=== PATIENT | male | born 1965 | race American Indian/Alaskan Native ===

== ENCOUNTER 2017-09-19 18:02 | Emergency (ER) | payer MEDICAID ==
[2017-09-19 18:18] VITALS: BMI 35.1
[2017-09-19 18:21] VITALS: RESP 18
[2017-09-19] MEDS ORDERED: Sodium Chloride 0.9% 1,000 ML IV STA (18:56)
--- NOTE | 2017-09-19 18:56 | ED PDOC ---
Arrival/HPI - General Chief Complaint: GI Problem Time Seen by Provider: 09/19/17 18:56 Historian: Patient - History of Present Illness Narrative History of Present Illness (Text): 09/19/17 18:56 This 52 yo male with pmh GERD, gastric ulcer, presents to this ED c/o epigastric pain, nausea, and vomiting x 2 days. Patient stated pain is non- radiating. Pain is described as burning. Patient has vomited at least 8 times since onset of symptoms. Last BM was this morning, and described as normal. Time/Duration: Other (2 days) Context: Home Past Medical History - Provider Review Nursing Documentation Reviewed: Yes - Infectious Disease Hx of Infectious Diseases: None - Gastrointestinal Hx Gastrointestinal Ulcer: Yes - Psychiatric Hx Depression: No Hx Substance Use: No - Surgical History Hx Orthopedic Surgery: Yes (left leg surgery) - Anesthesia Hx Anesthesia: Yes Hx Anesthesia Reactions: No Hx Malignant Hyperthermia: No - Suicidal Assessment Feels Threatened In Home Enviroment: No Family/Social History - Physician Review Nursing Documentation Reviewed: Yes Family/Social History: Other (noncontributory) Smoking Status: Current Some Days Smoker Hx Alcohol Use: Yes Frequency of alcohol use: Socially Hx Substance Use: No Allergies/Home Meds Allergies/Adverse Reactions: Allergies No Known Allergies Allergy (Verified 07/07/15 13:17) Review of Systems - Review of Systems Constitutional: Normal. absent: Fatigue, Weight Change, Fevers Eyes: Normal ENT: Normal Respiratory: Normal. absent: SOB, Cough Cardiovascular: Normal. absent: Chest Pain, Palpitations Gastrointestinal: Abdominal Pain, Nausea, Vomiting. absent: Constipation, Diarrhea Genitourinary Male: Normal. absent: Dysuria, Frequency, Hematuria Musculoskeletal: Normal Skin: Normal. absent: Rash Neurological: Normal. absent: Headache, Dizziness, Focal Weakness, Gait Changes , Speech Changes, Facial Droop Endocrine: Normal Hemo/Lymphatic: Normal Psychiatric: Normal Physical Exam Vital Signs Temp Pulse Resp BP Pulse Ox 09/19/17 18:19 98.2 F 85 18 153/94 H 95 Temperature: Afebrile Blood Pressure: Normal Pulse: Regular Respiratory Rate: Normal Appearance: Positive for: Well-Appearing, Non-Toxic, Comfortable Pain Distress: None Mental Status: Positive for: Alert and Oriented X 3 - Systems Exam Head: Present: Atraumatic, Normocephalic Pupils: Present: PERRL Extroacular Muscles: Present: EOMI Conjunctiva: Present: Normal Mouth: Present: Moist Mucous Membranes Neck: Present: Normal Range of Motion Respiratory/Chest: Present: Clear to Auscultation, Good Air Exchange. No: Respiratory Distress, Accessory Muscle Use Cardiovascular: Present: Regular Rate and Rhythm, Normal S1, S2. No: Murmurs Abdomen: Present: Normal Bowel Sounds. No: Tenderness, Distention, Peritoneal Signs, Rebound, Guarding Back: Present: Normal Inspection Upper Extremity: Present: Normal Inspection. No: Cyanosis, Edema Lower Extremity: Present: Normal Inspection. No: Edema Neurological: Present: GCS=15, CN II-XII Intact, Speech Normal Skin: Present: Warm, Dry, Normal Color. No: Rashes Psychiatric: Present: Alert, Oriented x 3, Normal Insight, Normal Concentration Medical Decision Making ED Course and Treatment: 09/19/17 21:14 Re-evaluation. Patient feels better. Discussed results and plan with patient who expresses understanding. All questions answered and there is agreement with the plan to discharge home with instructions. Patient stable for discharge. Return if symptoms persist or worsen. Re-evaluation Time: 21:14 Reassessment Condition: Re-examined, Improved - Lab Interpretations Lab Results: 09/19/17 19:15 09/19/17 19:15 Lab Results 09/19/17 19:15: Sodium 140, Potassium 4.3, Chloride 102, Carbon Dioxide 25, Anion Gap 17, BUN 11, Creatinine 1.0, Est GFR ( Amer) > 60, Est GFR (Non- Af Amer) > 60, Random Glucose 108, Calcium 10.0, Total Bilirubin 1.5 H, AST 36, ALT 68 H, Alkaline Phosphatase 57, Total Protein 7.9, Albumin 4.4, Globulin 3.5 , Albumin/Globulin Ratio 1.3, Lipase 48 09/19/17 19:15: WBC 7.3, RBC 4.81, Hgb 15.3, Hct 44.6, MCV 92.7, MCH 31.8, MCHC 34.3, RDW 13.6, Plt Count 255, MPV 9.1, Gran % 62.9, Lymph % (Auto) 29.0, [place] % (Auto) 7.6 H, Eos % (Auto) 0.4 L, Baso % (Auto) 0.1, Gran # 4.61, Lymph # ( Auto) 2.1, [place] # (Auto) 0.6, Eos # (Auto) 0.0, Baso # (Auto) 0.01 I have reviewed the lab results: Yes Interpretation: No clinic. lab abnormalty - RAD Interpretation Narrative RAD Interpretations (Text): 09/19/17 20:58 CT Scan ABD PELVIS IV CONTRAST ONLY Exam Date: 09/19/17 This imaging exam was performed at [facility] EXAM: CT Abdomen and Pelvis With Intravenous Contrast CLINICAL HISTORY: 52 years old, male; Pain; Abdominal pain; Epigastric; Additional info: Epigastric pain TECHNIQUE: Axial computed tomography images of the abdomen and pelvis with intravenous contrast. All CT scans at this facility use one or more dose reduction techniques, viz.: automated exposure control; ma/kV adjustment per patient size (including targeted exams where dose is matched to indication; i.e. head); or iterative reconstruction technique. Coronal and sagittal reformatted images were created and reviewed. CONTRAST: 100 mL of OMNI 350 administered intravenously. COMPARISON: No relevant prior studies available. FINDINGS: Lower thorax: No acute findings. ABDOMEN: Liver: Fatty infiltration of the liver. Gallbladder and bile ducts: No acute abnormality as visualized. Pancreas: No acute abnormality as visualized. Spleen: No splenomegaly. Adrenals: No acute abnormality as visualized. Kidneys and ureters: Bilateral hypoattenuating lesions of varying size and complexity, some containing calcifications. The largest is on the left measuring approximately 3 cm. Majority too small for complete evaluation on current study. Followup evaluation dedicated imaging can be used to assess stability. Symmetric emhancement. No hydronephrosis. Stomach and bowel: Evaluation limited without enteric contrast. Question thickening of distal esophageal wall. The stomach is collapsed, limiting its evaluation. No obstruction. Colonic diverticula. Appendix: No findings to suggest acute appendicitis. PELVIS: Bladder: Limited evaluation due to collapsed state. Reproductive: Prostatic calcifications. ABDOMEN and PELVIS: Intraperitoneal space: No free air. No significant fluid collection. Bones: Degenerative changes. Alejandro and screws stabilize left femur. Soft tissues: Fat-containing umbilical and bilateral inguinal hernias. Vasculature: No abdominal aortic aneurysm. Lymph nodes: No acute abnormality as visualized. IMPRESSION: Evaluation of bowel limited without enteric contrast. Question thickening of distal esophageal wall. Colonic diverticula. Fatty infiltration of the liver. Bilateral hypoattenuating lesions in the kidneys of varying size and complexity, some containing calcifications. The largest is on the left measuring approximately 3 cm. Majority too small for complete evaluation on current study. Followup evaluation dedicated imaging can be used to assess stability. Fat-containing umbilical and bilateral inguinal hernias. Additional details/findings as above. Correlate clinically. Followup as warranted. Radiology Orders: 09/19/17 18:56 CHEST PORTABLE [RAD] Stat 09/19/17 18:59 ABD & PELVIS IV CONTRAST ONLY [CT] Stat - Medication Orders Current Medication Orders: Discontinued Medications Al Hydrox/Mg Hydrox/Simethicone (Maalox Plus 30 Ml) 30 ml PO STAT STA Stop: 09/19/17 20:09 Last Admin: 09/19/17 20:21 Dose: 30 ml Belladonna/Phenobarbital ( Elixir) 5 ml PO STAT STA Stop: 09/19/17 20:09 Last Admin: 09/19/17 20:23 Dose: 5 ml Sodium Chloride (Sodium Chloride 0.9%) 1,000 mls @ 1,000 mls/hr IV .Q1H STA Stop: 09/19/17 19:55 Last Admin: 09/19/17 19:36 Dose: 1,000 mls/hr eMAR Start Stop Document 09/19/17 19:36 [email or web address] (Rec: 09/19/17 19:37 [email or web address] [facility] [id number]) Intravenous Solution Start Date 09/19/17 Start Time 19:37 End Date 09/19/17 Ketorolac Tromethamine (Toradol) 30 mg IVP STAT STA Stop: 09/19/17 20:08 Last Admin: 09/19/17 20:20 Dose: 30 mg MAR Pain Assessment Document 09/19/17 20:20 LA (Rec: 09/19/17 20:21 LA [facility] [id number]) Pain Reassessment Is this a pain reassessment? No Sleep Is patient sleeping during reassessment? No Presence of Pain Presence of Pain Yes Pain Scale Used Pain Scale Used Numeric Location Pain Location Body Site Abdomen IVP Administration Document 09/19/17 20:20 LA (Rec: 09/19/17 20:21 LA [facility] [id number]) Charges for Administration # of IVP Administrations 1 Lidocaine HCl (Lidocaine 2% Viscous) 5 ml PO STAT STA Stop: 09/19/17 20:09 Last Admin: 09/19/17 20:21 Dose: 5 ml Ondansetron HCl (Zofran Inj) 4 mg IVP STAT STA Stop: 09/19/17 18:57 Last Admin: 09/19/17 19:37 Dose: 4 mg IVP Administration Document 09/19/17 19:37 [email or web address] (Rec: 09/19/17 19:38 [email or web address] [id number]) Charges for Administration # of IVP Administrations 1 Pantoprazole Sodium (Protonix Inj) 40 mg IVP STAT STA Stop: 09/19/17 18:57 Last Admin: 09/19/17 19:38 Dose: 40 mg IVP Administration Document 09/19/17 19:38 [email or web address] (Rec: 09/19/17 19:38 [email or web address] [id number] [employer] [employer]) Charges for Administration # of IVP Administrations 1 Disposition/Present on Arrival - Present on Arrival Any Indicators Present on Arrival: No History of DVT/PE: No History of Uncontrolled Diabetes: No Urinary Catheter: No History of Decub. Ulcer: No History Surgical Site Infection Following: None - Disposition Have Diagnosis and Disposition been Completed?: Yes Diagnosis: Esophagitis, Nonspecific abdominal pain Disposition: HOME/ ROUTINE Disposition Time: 21:15 Patient Plan: Discharge Patient Problems: Current Active Problems Problem Status Onset Esophagitis Acute Nonspecific abdominal pain Acute Condition: IMPROVED Discharge Instructions (ExitCare): Nausea and Vomiting, Adult Additional Instructions: Call private doctor for follow up visit in 1-[address] Peñaloza Gatroenterologist for revaluation at earliest appointment. Take medication as instructed. Return to emergency if symptoms worsen. You can also ask Dr. Null to give you a referral to see a different car hiker Prescriptions: Acetaminophen [Tylenol 325mg tab] 975 mg PO Q6H PRN #30 tab PRN Reason: Pain, Moderate (4-7) Omeprazole 40 mg PO DAILY #20 capsule. Ondansetron ODT [Zofran ODT] 4 mg PO Q4H PRN #15 odt PRN Reason: Nausea/Vomiting Sucralfate [Carafate] 1 gm PO DAILY #20 tab Referrals: Remy Peñaloza MD [Medical Doctor] - Follow up with primary Kristen Null MD [Family Provider] - Follow up with primary Forms: [employer] (Somali), WORK NOTE
[2017-09-19] MEDS ORDERED: Iohexol 350 MG/100 ML VIAL ONE (19:24)
[2017-09-19 19:31] LABS: BASO # 0.01 K/mm3 (0.0-2.0); BASO % 0.1 % (0.0-3.0); EOS % 0.4 % (1.5-5.0); GRAN # 4.61 (1.4-6.5); GRAN % 62.9 % (50.0-68.0); HEMOGLOBIN 15.3 g/dL (14.0-18.0); LYMPH # 2.1 (1.2-3.4); MEAN CELL VOLUME 92.7 fl (80.0-105.0); MEAN CORPUSCULAR HEMOGLOBIN 31.8 pg (25.0-35.0); MEAN CORPUSCULAR HGB CONC 34.3 g/dl (31.0-37.0); MEAN PLATELET VOLUME 9.1 fl (7.0-11.0); MONO # 0.6 (0.1-0.6); MONO % 7.6 % (1.0-6.0); RBC 4.81 10^6/uL (3.5-6.1); RED CELL DISTRIBUTION WIDTH 13.6 % (11.5-14.5); WHITE BLOOD COUNT 7.3 10^3/ul (4.5-11.0)
[2017-09-19 19:37] LABS: ALB/GLOB RATIO 1.3 (1.1-1.8); ALBUMIN 4.4 g/dL (3.0-4.8); ALT/SGPT 68 U/L (7-56); AST/SGOT 36 U/L (17-59); BLOOD UREA NITROGEN 11 mg/dL (7-21); GFR AFRICAN-AMERICAN > 60; GFR NON-AFRICAN AMERICAN > 60; LIPASE 48 U/L (23-300)
[2017-09-19] MEDS ORDERED: Atrop/Hyosc/Scopal/PB Elixir (120 ml) PO STA (20:08)
[2017-09-19] MEDS ORDERED: Alum-Mag Hydrox-Simethicone Susp (30 mL) PO STA (20:08)
--- NOTE | 2017-09-19 20:37 | CT ---
EXAM: CT Abdomen and Pelvis With Intravenous Contrast CLINICAL HISTORY: 52 years old, male; Pain; Abdominal pain; Epigastric; Additional info: Epigastric pain TECHNIQUE: Axial computed tomography images of the abdomen and pelvis with intravenous contrast. All CT scans at this facility use one or more dose reduction techniques, viz.: automated exposure control; ma/kV adjustment per patient size (including targeted exams where dose is matched to indication; i.e. head); or iterative reconstruction technique. Coronal and sagittal reformatted images were created and reviewed. CONTRAST: 100 mL of OMNI 350 administered intravenously. COMPARISON: No relevant prior studies available. FINDINGS: Lower thorax: No acute findings. ABDOMEN: Liver: Fatty infiltration of the liver. Gallbladder and bile ducts: No acute abnormality as visualized. Pancreas: No acute abnormality as visualized. Spleen: No splenomegaly. Adrenals: No acute abnormality as visualized. Kidneys and ureters: Bilateral hypoattenuating lesions of varying size and complexity, some containing calcifications. The largest is on the left measuring approximately 3 cm. Majority too small for complete evaluation on current study. Followup evaluation dedicated imaging can be used to assess stability. Symmetric emhancement. No hydronephrosis. Stomach and bowel: Evaluation limited without enteric contrast. Question thickening of distal esophageal wall. The stomach is collapsed, limiting its evaluation. No obstruction. Colonic diverticula. Appendix: No findings to suggest acute appendicitis. PELVIS: Bladder: Limited evaluation due to collapsed state. Reproductive: Prostatic calcifications. ABDOMEN and PELVIS: Intraperitoneal space: No free air. No significant fluid collection. Bones: Degenerative changes. Alejandro and screws stabilize left femur. Soft tissues: Fat-containing umbilical and bilateral inguinal hernias. Vasculature: No abdominal aortic aneurysm. Lymph nodes: No acute abnormality as visualized. IMPRESSION: Evaluation of bowel limited without enteric contrast. Question thickening of distal esophageal wall. Colonic diverticula. Fatty infiltration of the liver. Bilateral hypoattenuating lesions in the kidneys of varying size and complexity, some containing calcifications. The largest is on the left measuring approximately 3 cm. Majority too small for complete evaluation on current study. Followup evaluation dedicated imaging can be used to assess stability. Fat-containing umbilical and bilateral inguinal hernias. Additional details/findings as above. Correlate clinically. Followup as warranted.
[2017-09-19 22:09] VITALS: BP 149/85; PULSE 80; TEMP 98; O2SAT 98
--- NOTE | 2017-09-20 09:06 | RAD ---
HISTORY: epigastric pain COMPARISON: No prior. FINDINGS: LUNGS: The lungs are well inflated and clear. PLEURA: No significant pleural effusion identified, no pneumothorax apparent. CARDIOVASCULAR: Normal. OSSEOUS STRUCTURES: No significant abnormalities. VISUALIZED UPPER ABDOMEN: Normal. OTHER FINDINGS: None. IMPRESSION: No active pulmonary disease.
--- NOTE | 2017-09-20 19:11 | CARD ---
APPROVED REPORT EKG Measurement Heart [id number] CA [id number] <Conclusion> Normal sinus rhythm Abnormal QRS-T angle, consider primary T wave abnormality Abnormal ECG
== END 2017-09-19 21:46 | disposition home or self-care (01) ==
LOC: ED 18:02
DX: K20.9 Esophagitis, unspecified (principal); R10.9 Unspecified abdominal pain
CPT/HCPCS: 71045; 74177; 80053; 83690; 85025; 93005; 96374; 96375; 99283; C9113; J1885; J2405; J7040; Q9967

== ENCOUNTER 2018-09-29 15:48 | Emergency (ER) | payer MEDICAID ==
[2018-09-29 16:14] VITALS: BMI 34.0
[2018-09-29 16:20] VITALS: RESP 18; TEMP 98.7
--- NOTE | 2018-09-29 16:53 | ED PDOC ---
Arrival/HPI - General Chief Complaint: Cough, Cold, Congestion Time Seen by Provider: 09/29/18 15:58 Historian: Patient - History of Present Illness Narrative History of Present Illness (Text): 09/29/18 16:50 53 year old male with no significant past medical history presents to the Emergency department complaining of a productive cough with yellow sputum x 3 days. Patient endorses a subjective fever and sore throat. He denies shortness of breath, nausea, vomiting, diarrhea, abdominal pain, chest pain or any other complaints. He also denies any recent travel or sick contact. Time/Duration: < week Symptom Onset: Gradual Symptom Course: Unchanged Activities at Onset: Light Context: Home Past Medical History - Provider Review Nursing Documentation Reviewed: Yes - Infectious Disease Hx of Infectious Diseases: None - Cardiac Hx Cardiac Disorders: No - Pulmonary Hx Respiratory Disorders: No - Neurological Hx Neurological Disorder: No - HEENT Hx HEENT Disorder: No - Renal Hx Renal Disorder: No - Endocrine/Metabolic Hx Endocrine Disorders: No - Hematological/Oncological Hx Blood Disorders: No - Integumentary Hx Dermatological Disorder: No - Musculoskeletal/Rheumatological Hx Falls: No - Gastrointestinal Hx Gastrointestinal Disorders: Yes Other/Comment: Ventral Hernia - Genitourinary/Gynecological Hx Genitourinary Disorders: No - Psychiatric Hx Psychophysiologic Disorder: No Hx Depression: No Hx Substance Use: No - Surgical History Hx Open Reduction Internal Fixation: Yes (left leg) - Anesthesia Hx Anesthesia: Yes Hx Anesthesia Reactions: No Hx Malignant Hyperthermia: No - Suicidal Assessment Feels Threatened In Home Enviroment: No Family/Social History - Physician Review Nursing Documentation Reviewed: Yes Family/Social History: Unknown Family HX Smoking Status: Current Some Days Smoker Hx Alcohol Use: Yes Frequency of alcohol use: Socially Hx Substance Use: No Allergies/Home Meds Allergies/Adverse Reactions: Allergies No Known Allergies Allergy (Verified 07/07/15 13:17) Home Medications: Home Meds Medication Instructions Recorded Confirmed Ibuprofen 1 tab PO PRN PRN 10/01/17 10/01/17 Review of Systems - Physician Review All systems were reviewed & negative as marked: Yes - Review of Systems Constitutional: Fevers. absent: Fatigue ENT: Sore Throat, Sinus Congestion Respiratory: Cough, Sputum (yellow). absent: SOB Cardiovascular: absent: Chest Pain, Palpitations Gastrointestinal: absent: Abdominal Pain, Diarrhea, Nausea, Vomiting Genitourinary Male: absent: Dysuria, Urinary Output Changes Musculoskeletal: absent: Arthralgias, Back Pain, Neck Pain, Joint Swelling Skin: absent: Rash, Pruritis Endocrine: absent: Diaphoresis Psychiatric: absent: Anxiety, Depression Physical Exam Vital Signs Reviewed: Yes Vital Signs Temp Pulse Resp BP Pulse Ox 09/29/18 15:48 98.7 F 99 H 18 138/67 95 Temperature: Afebrile Blood Pressure: Normal Pulse: Regular Respiratory Rate: Normal Appearance: Positive for: Well-Appearing, Non-Toxic, Comfortable Pain Distress: None Mental Status: Positive for: Alert and Oriented X 3 - Systems Exam Head: Present: Atraumatic, Normocephalic Conjunctiva: Present: Normal Ears: Present: Normal, NORMAL TM, Normal Canal. No: Erythema Mouth: Present: Moist Mucous Membranes. No: Drooling, Trismus Pharnyx: Present: Normal. No: ERYTHEMA, EXUDATE, TONSILS ENLARGED, Peritonsilar Swelling, Uvular Deviation Nose (Internal): Present: Normal Inspection. No: Septal Hematoma Neck: Present: Normal Range of Motion, Trachea Midline. No: MIDLINE TENDERNESS Respiratory/Chest: Present: Clear to Auscultation, Good Air Exchange. No: Respiratory Distress, Accessory Muscle Use Cardiovascular: Present: Regular Rate and Rhythm, Normal S1, S2. No: Murmurs Abdomen: No: Tenderness, Distention, Peritoneal Signs Neurological: Present: GCS=15, Speech Normal Skin: Present: Warm, Dry, Normal Color. No: Rashes Psychiatric: Present: Alert, Oriented x 3 Medical Decision Making ED Course and Treatment: 09/29/18 16:56 Impression: 53 year old male presents to the Emergency department complaining of a p roductive cough, sore throat and subjective fever x 3 days Plan: --CXR -- Reassess and disposition Prior Visits: Notes and results from previous visits were reviewed. Progress Notes: Patient is nontoxic well-appearing in no distress. Vital signs are stable. cxr; wnl zithromax po I advised follow up with primary care physician within the next 2 days. I advised increase fluids and return if symptoms worsen persist or if new symptoms develop. IMPRESSION; cough tylenol every 4 hours as needed for pain/fever reduction Zithromax one tablet once daily x4 days Increase fluids Followup with primary care physician the next 2 days Return if symptoms worsen persist or if new symptoms develop - RAD Interpretation Radiology Orders: 09/29/18 16:30 CHEST TWO VIEWS (PA/LAT) [RAD] Stat - PA / PROGRESSIVE CARE UNIT REGISTERED NURSE / Resident Statement MD/DO has reviewed & agrees with the documentation as recorded. - Scribe Statement The provider has reviewed the documentation as recorded by the Markibmary Choudhary, nora with Shellie. All medical record entries made by the Markibe were at my direction and personally dictated by me. I have reviewed the chart and agree that the record accurately reflects my personal performance of the history, physical exam, medical decision making, and the department course for this patient. I have also personally directed, reviewed, and agree with the discharge instructions and disposition. Disposition/Present on Arrival - Present on Arrival Any Indicators Present on Arrival: No History of DVT/PE: No History of Uncontrolled Diabetes: No Urinary Catheter: No History of Decub. Ulcer: No History Surgical Site Infection Following: None - Disposition Have Diagnosis and Disposition been Completed?: Yes Diagnosis: Cough Disposition: HOME/ ROUTINE Disposition Time: 17:47 Patient Plan: Discharge Condition: GOOD Discharge Instructions (ExitCare): Cough, Adult (DC) Additional Instructions: tylenol every 4 hours as needed for pain/fever reduction Zithromax one tablet once daily x4 days Increase fluids Followup with primary care physician the next 2 days Return if symptoms worsen persist or if new symptoms develop Prescriptions: Azithromycin [Zithromax] 250 mg PO DAILY #4 tab Forms: [employer] (Kittitian), WORK NOTE
--- NOTE | 2018-09-29 17:21 | RAD ---
Date of service: 09/29/2018 HISTORY: Cough COMPARISON: 09/19/2017. TECHNIQUE: Chest PA and lateral FINDINGS: LINES AND TUBES: None. LUNG AND PLEURA: The lungs are well inflated and clear. No pleural effusion or pneumothorax. HEART AND MEDIASTINUM: The heart is not enlarged. No aortic atherosclerotic calcifications present. The hilar and mediastinal contours are within normal limits. SKELETAL STRUCTURES: The bony structures are within normal limits for the patient's age. VISUALIZED UPPER ABDOMEN: Normal. OTHER FINDINGS: None. IMPRESSION: No active pulmonary disease.
[2018-09-29 17:52] VITALS: BP 133/66; PULSE 91; O2SAT 96
== END 2018-09-29 18:00 | disposition home or self-care (01) ==
LOC: ED 15:48
DX: R05 Cough (principal)